=== PATIENT | female | born 1975 | race Caucasian/White ===

== ENCOUNTER → 2016-04-09 | Outpatient (CLI) | payer BC ==
[~2016-04-09] MED LIST: ACETTAB85 PO; GAB400C PO
[2016-04-09 08:30] VITALS: BP 139/88
[2016-04-09 08:50] VITALS: BP 141/83
[2016-04-09 12:22] LABS: INR 0.97 (0.9-1.15); Partial Thromboplastin Time 27.3 sec (22.64-33.71)
[2016-04-09 12:33] LABS: Basophils # (auto) 0.1 uL; Basophils % (auto) 1.9 % (0.0-2.0); Eosinophils # (auto) 0.1 uL; Eosinophils % (auto) 1.1 % (0.0-7.0); Hematocrit 45.8 % (36.0-46.0); Hemoglobin 14.7 g/dL (12.2-16.2); Lymphocytes # (auto) 1.6 uL; Lymphocytes % (auto) 26.4 % (10.0-50.0); Mean Corpuscular Hemoglobin 31.3 pg (28.0-32.0); Mean Corpuscular Volume 97.7 fL (80.0-100.0); Mean Platelet Volume 11.3 fL (7.4-10.4); Monocytes # (auto) 0.5 uL; Monocytes % (auto) 8.3 % (0.0-12.0); Neutrophils # (auto) 3.9 uL; Neutrophils % (auto) 62.3 % (37.0-80.0); Platelet Count (auto) 138 10^3/uL (140-450); Red Cell Distribution Width 12.8 % (11.6-16.0); White Blood Cell 6.2 10^3/uL (4.4-10.8)
[2016-04-09 12:47] LABS: BUN/Creatinine Ratio 8.2; Potassium 3.6 mmol/L (3.5-5.1)
== END | disposition home or self-care (01) ==
LOC: Rad HDHVI 08:29
PROVIDERS: ATTEND Internal Medicine Cardiovascular Disease
DX: I10 Essential (primary) hypertension (principal); D64.9 Anemia, unspecified; R79.1 Abnormal coagulation profile
CPT/HCPCS: 36415; 71020; 80048; 85025; 85610; 85730; G0463

== ENCOUNTER → 2016-04-11 | Day surgery (SDC) | payer BC ==
[~2016-04-11] MED LIST changes: +ANGIOMAX 250 MG VIAL IV ONE; +IOHEXOL 350 MG/ML 100ML IJ ONE; +LIDOCAINE 2%HCL (LOCAL ANESTH.) INJ 20ML MDV ONE; +MIDAZOLAM HCL 1MG/1ML-2 ML VIAL ONE; +SODIUM CHL 0.9% 0 ML ONE; +SODIUM CHLORIDE 0.9% 1,000 ML IV SCH; +fentaNYL CITRATE 100 MCG/2 ML VL ONE
== END | disposition home or self-care (01) ==
LOC: CATH 07:21
PROVIDERS: ATTEND Internal Medicine Cardiovascular Disease
DX: R06.02 Shortness of breath (principal); J44.9 Chronic obstructive pulmonary disease, unspecified; J43.9 Emphysema, unspecified; Z90.710 Acquired absence of both cervix and uterus
CPT/HCPCS: 93458; C1760; C1894; J1644; J2250; J3010; J7030; Q9967

== ENCOUNTER → 2016-07-24 | Emergency (ER) | payer BC ==
[~2016-07-24] MED LIST changes: -ANGIOMAX 250 MG VIAL IV ONE; -IOHEXOL 350 MG/ML 100ML IJ ONE; -LIDOCAINE 2%HCL (LOCAL ANESTH.) INJ 20ML MDV ONE; -MIDAZOLAM HCL 1MG/1ML-2 ML VIAL ONE; -SODIUM CHL 0.9% 0 ML ONE; -SODIUM CHLORIDE 0.9% 1,000 ML IV SCH; -fentaNYL CITRATE 100 MCG/2 ML VL ONE
== END | disposition left against medical advice (07) ==
LOC: ER 20:29
DX: R06.02 Shortness of breath (principal); Z53.21 Procedure and treatment not carried out due to patient leaving prior to being seen by health care provider